=== PATIENT | male | born 1985 | race Caucasian/White ===

== ENCOUNTER 2023-04-18 10:29 | Day surgery (SDC) | payer OTHER, SELFPAY ==
[2023-04-18] VITALS (13 sets, daily range): BP systolic 113–144; BP diastolic 64–94; PULSE 48–77; RESP 16–18; TEMP 36.4–36.7; O2SAT 96–100; BMI 28.6
[2023-04-18] MEDS: SODIUM CHLORIDE 0.9 % (FLUSH) 10 ML SYRINGE IVF (11:50)
[2023-04-18] MEDS: LACTATED RINGERS 1000 ML 1,000 ML 100 ML IV ×2 (11:50→13:37)
--- NOTE | 2023-04-18 12:18 | W.ANESCHARGE ---
Anesthesia Charges Start Date/Time Anesthesia Start Date: 04/18/23 Anesthesia Start Time: 13:13 Stop Date/Time Anesthesia Stop Date: 04/18/23 Anesthesia Stop Time: 15:01
--- NOTE | 2023-04-18 12:55 | PM.GSPRC ---
Operative Note Pre-op diagnosis: Right inguinal hernia Incarcerated umbilical hernia Post-op diagnosis: Same Type of Procedure: Laparoscopic right inguinal hernia repair with mesh Primary open repair incarcerated umbilical hernia, 1 cm Indications: The patient is a 37-year-old male with a right inguinal hernia which has become increasingly symptomatic for him. He also has a history of umbilical hernia which has been bothersome to him and after discussion of options he desires repair. Procedure Description: After discussing the risks and benefits of the procedure, the patient signed informed consent.? The operative site was marked and the patient was brought to the operating room and placed on the operating table in supine position.? Care was taken to pad the patient's pressure points.?? The patient was then intubated by anesthesia.?? The operative site was then prepped and draped in the usual sterile fashion.? A time-out was then performed. A curvilinear incision was made above the umbilicus at the patient's umbilical hernia. The umbilical hernia was noted to contain fat. This was not reducible. This was retracted medially. Dissection was carried down to subcutaneous tissue until the anterior rectus fascia was encountered. This was incised off the midline on the right. The rectus muscle fibers were then retracted exposing the posterior fascia. A port with a dissecting balloon was then introduced into the pre-preperitoneal space. This was inflated under direct vision. The balloon was deflated, removed, and a 10 mm working port was placed. The space was insufflated and a 10 mm 30-degree scope was then advanced into the space. Two 5 mm ports were placed in the midline under direct vision. Dissection began on the right side. Norman's ligament and the pubic bone were exposed medially. Following this, dissection was carried out laterally. A small indirect hernia sac was noted. This was reduced. The internal ring was examined and there was a large cord lipoma noted. This was completely reduced. Once the dissection was complete, a piece of Bard 3DMax mesh for the appropriate side was placed into the abdomen. This was positioned with the marker pointed medially. A Tacker was used to attach the mesh medially at Norman's ligament and 1 tack laterally with care to avoid the epigastric vessels and stay above the inguinal ligament. Once this was completed the sac was placed on top of the mesh and the preperitoneal space desufflated under direct vision to ensure the mesh laid flat. 10 mL of 0.5% Marcaine were instilled into the preperitoneal space through a port. The ports were removed. Attention was then turned to repair of the umbilical hernia. As mentioned, the hernia was noted to be fat containing. This did not reduce. The fat was then ligated with cautery. The fascia was cleared and the umbilical stalk dissected free. The defect was found to be 1 cm. Because of its small size, the decision was made to close this primarily. 0 Nurolon suture was used to close the fascia in a [id number] fashion. Once this was complete, the anterior fascia from the port site was then closed with a combination of 0 Vicryl and 0 Nurolon suture. The umbilicus was reapproximated to the fascia using 3-0 Vicryl. The umbilical incision was closed with 3 0 Vicryl dermal suture. The remainder of the incisions were closed with 4-0 Monocryl subcuticular suture. Glue was then applied. The scrotum was examined to ensure that both testicles were down. Instrument sponge and needle counts were correct at the end of the case. The patient was then woken and transported to the recovery area in stable condition. ? The patient tolerated the procedure well. Findings: Fat containing indirect right inguinal hernia Fat containing incarcerated umbilical hernia. Surgeon: Talia Raymond MD Estimated blood loss (mL): 10 Condition: stable Disposition: PACU Date of procedure: 04/18/23
[2023-04-18] MEDS: CEFAZOLIN 2 GM INJ IVP (13:25)
[2023-04-18] MEDS: BUPIVACAINE 0.25% 30 ML INJECTION (14:42)
--- NOTE | 2023-04-18 15:02 | W.ANESCHARGE ---
Anesthesia Charges Start Date/Time Anesthesia Start Date: 04/18/23 Anesthesia Start Time: 13:13 Stop Date/Time Anesthesia Stop Date: 04/18/23 Anesthesia Stop Time: 15:01
[2023-04-18] MEDS: fentaNYL 100 MCG/2 ML inj 50 MCG IVP (15:30)
[2023-04-18] MEDS: KETOROLAC 15 MG/ML inj IVP (16:45)
--- NOTE | 2023-04-18 16:50 | SUR.PHASEII ---
pt rated pain 4/10 in umbilical incision. Up to chair without difficulty.
== END 2023-04-18 17:03 | disposition home or self-care (01) ==
PROVIDERS: PCP Family Medicine; Visit Provider Surgery
PROC: (CPT 49650; principal; 2023-04-18 12:15)
PROC: (CPT 49650; 2023-04-18 12:15)
DX: K40.90 Unilateral inguinal hernia, without obstruction or gangrene, not specified as recurrent (principal); K42.0 Umbilical hernia with obstruction, without gangrene
CPT/HCPCS: 49650; 49592; 00860; C1781; J0330; J0665; J0690; J1100; J1885; J2250; J2405; J2704; J3010; J3490; J7120